=== PATIENT | female | born 1960 ===

== ENCOUNTER → 2023-10-20 | Outpatient (REF) | payer OTHER ==
[2023-10-20 12:46] LABS: IONIZED CALCIUM 5.5 MG/DL (4.5-5.3)
[2023-10-20 13:25] LABS: PTH INTACT 89.8 PG/ML (18.5-88.0)
== END ==
LOC: M LAB REF 12:24
PROVIDERS: ATTEND Internal Medicine
DX: E83.52 Hypercalcemia (principal)